=== PATIENT | male | born 1980 | race African-American/Black ===

== ENCOUNTER 2016-06-08 19:08 | Emergency (ER) ==
--- NOTE | 2016-06-08 19:33 | PROVIDER DOCUMENTATION ---
HPI-General Adult - General Source: patient - History of Present Illness -Gen Adult Nature of Presenting Problems: Pt. is 35 yom that presents with c/o right calf pain. Pt. reports he was seen last week at an Urgent care and they told him to come to the ED then to be checked for a clot. He didn't come then and now has decided since the pain will not go away that he wants to be checked. Pt. denies any injury or other symptoms but reports a family history of blood clots. Location of Pain/Injury: reports: lower extremity (Right calf). denies: head, face, mouth, neck, chest, upper extremity, hand(s), abdomen, back, pelvis, genitalia, feet, upper body, lower body, generalized Pain Radiation: reports: no radiation Quality of Pain: reports: aching. denies: burning, cramping, dull, fullness, indigestion, pressure, sharp, stabbing, tearing, throbbing, tightness Severity: reports: mild. denies: moderate, severe Onset/Duration: reports: abrupt, 1 week ago Timing: reports: still present. denies: improving, gone now, resolved prior to arrival, intermittent, constant, changing over time, getting worse Context/Activities at Onset: reports: none. denies: recent emotional stress, recent physical stress, recent trauma history, possible bad food, cold exposure , out of country travel Modifying Factors: improves with: nothing Associated Symptoms: reports: muscle aches. denies: anxiety, arm pain, back/ neck pain, chest pain, constipation, cough, diaphoresis, diarrhea, dizziness, EENT symptoms, fatigue, fever/chills, genitourinary problems, headaches, heartburn, joint pain, loss of appetite, malaise, sinus congestion/drainage, nausea, rash, seizure, shortness of breath, sensory/motor loss, pain with inspiration, swelling/mass in abdomen, syncope, vomiting, weakness, trouble walking Similar Symptoms Previously?: Yes Recently seen or treated by another doctor?: Yes <Penny Yanes - Last Filed: 06/08/16 19:45> <Antonietta Johnson - Last Filed: 06/08/16 20:35> - General Chief Complaint: Extremity Pain Stated Complaint: "GOUT/BLOOD CLOTS" Time Seen by Provider: 06/08/16 19:28 Allergies/Adverse Reactions: Patient Allergies Allergy/AdvReac Type Severity Reaction Status Date / Time No Known Allergies Allergy Verified 06/08/16 19:21 Home Medications: Home Medication List Medication Instructions Recorded Confirmed Last Taken Type Hydrocodone/Acetaminophen [[place] 7.5 mg PO 06/08/16 Unknown History 7.5-325 Tablet] Rivaroxaban [Xarelto] 10 mg PO DAILY #5 tablet 06/08/16 Unknown Rx Review of Systems - Adult - REVIEW OF SYSTEMS - ADULT Constitutional: reports: see HPI. denies: chills, fever, fatique Eyes: reports: see HPI. denies: discharge, blurred vision, double vision Ears, Nose, Mouth & Throat: reports: see HPI. denies: ear pain, hearing loss, sinus problem, nose pain, loose teeth, mouth/dental pain, throat pain, throat swelling Cardiovascular: reports: see HPI. denies: chest pain, heart murmur, orthopnea, syncope Respiratory: reports: see HPI. denies: chronic cough, cough, dyspnea on exertion, pleurisy, shortness of breath, wheezing Gastrointestinal: reports: see HPI. denies: abdominal pain, hematemesis, diarrhea, nausea, vomiting Genitourinary: reports: see HPI. denies: dysuria, discharge, flank pain, hesitency, urgency Musculoskeletal: reports: see HPI, muscle aches. denies: bone pain, back pain, joint pain, joint swelling, neck pain Integumentary: reports: see HPI. denies: hives, itching, mole changes, rash, skin thickening Neurological: reports: see HPI. denies: ataxia, headache/migraines, numbness, paresthesia, seizure, tremors Psychiatric: reports: see HPI. denies: anxiety, depression, emotional problems , insomnia, panic attacks, suicidal thoughts <Penny Yanes - Last Filed: 06/08/16 19:45> Past History - Adult - PAST MEDICAL HISTORY-ADULT Review of Records: reports: Old Records Reviewed, Nursing Assessment Review, Medications Reviewed, Social history reviewed & non-contributory. - IMMUNIZATION STATUS Childhood Immunizations: See Nurse Assessment Flu Vaccine: See Nurse Assessment - FAMILY HISTORY Family History: other (Blood clots) - SOCIAL HISTORY Smoking: non-smoker <Penny Yanes - Last Filed: 06/08/16 19:45> Physical Exam-General - PHYSICAL EXAM-ADULT Initial Vital Signs Reviewed: Yes - CONSTITUTIONAL General Appearance: alert, mild distress, obese. negative: thin, anxious, lethargic, slow to respond, obtunded, combative - EYES Eyes: PERRL/EOMI, pink conjunctivae. negative: conjuctival exudate, scleral icterus, subconjunctival hemorrhage - HEAD, EARS, NOSE, MOUTH & THROAT HENMT: normocephalic/atraumatic, moist mucous membranes. negative: angioedema, frontal tenderness, maxillary tenderness - NECK Neck: non-tender, full range of motion, supple, normal inspection. negative: lymphadenopathy, trachial deviation, thyromegaly - RESPIRATORY Respiratory: lungs clear, normal breath sounds. negative: crackles, rales, rhonchi, stridor, wheezing - CARDIOVASCULAR Cardiovascular: normal peripheral pulses, regular rate, rhythm, no edema, no JVD , no murmur. negative: extra beats, friction rub, irregularly irregular - CHEST (BREASTS) Chest/Breast: deferred - GASTROINTESTINAL (ABDOMEN) Abdominal Exam: normal bowel sounds, non tender, soft. negative: distended, guarding, rigid, rebound, tenderness, hernia, mass - GENITOURINARY Male Genitalia: deferred Rectal Exam: deferred Hemoccult Exam: deferred - LYMPHATIC Lymphatic: no adenopathy. negative: axilla node tender, cervical node tenderness - MUSCULOSKELETAL Back Exam: normal inspection, no CVA tenderness, no vertebral tenderness. negative: ecchymosis, swelling, vertebral tenderness Extremity: normal range of motion, normal gait, normal inspection, tenderness. negative: deformity, erythema, inflammation, swelling Peripheral Pulses: radial (R): 2+, radial (L): 2+ - SKIN Integumentary: normal color, normal turgor, warm/dry. negative: cyanosis, diaphoresis, ecchymosis, erythema, jaundice, mottled, pallor, petechiae, purpura , rash, swelling, tenderness - NEUROLOGIC Neurologic: grossly normal, no motor/sensory deficits. negative: aphasia, facial droop, focal weakness, motor weakness, sensory deficit - PSYCHIATRIC Psych/Mental Status: normal mood/affect, normal thought content, normal thought process, oriented x 3. negative: anxious, paranoid, tearful <Penny Yanes - Last Filed: 06/08/16 19:45> Progress - CHANGE OF SHIFT REPORT (ED Provider) Report Given and Care Transferred to:: Antonietta Johnson PA-C Time of Transfer: 19:45 Items Pending: Labs Tentative Impression of Patient: Pulled muscle? <Penny Yanes - Last Filed: 06/08/16 19:45> - PLAN OF CARE/RESULTS Progress/Plan/Lab Results: Vital Signs Temp Pulse Resp BP Pulse Ox 06/08/16 19:15 98 F 84 18 164/76 98 No Known Allergies Allergy (Verified 06/08/16 19:21) Hydrocodone/Acetaminophen [[place] 7.5-325 Tablet] 7.5 mg PO 06/08/16 Laboratory 06/08/16 19:45 D-Dimer 2.35 H Orders Category Date Time Status D-DIMER PL [COAG] Stat Lab 06/08/16 19:45 Completed Vascular US is not on the premises at this time. Issued out-pt order for right LE doppler US to r/o DVT. Orders Category Date Time Status D-DIMER PL [COAG] Stat Lab 06/08/16 19:45 Completed Rivaroxaban [Xarelto] Med 06/08/16 20:34 Once 10 mg PO NOW ONE discussed with Dr. Zuleta, recommended PO xarelto and follow up tomorrow for doppler. <Antonietta Johnson - Last Filed: 06/08/16 20:35> Departure <Penny Yanes - Last Filed: 06/08/16 19:45> - Departure Time of Disposition Order: 20:29 Certified Medical Emergency: Emergent <Antonietta Johnson - Last Filed: 06/08/16 20:35> - Departure DIAGNOSIS: Elevated d-dimer Disposition: HOME 01 Condition: Good Additional Instructions: Follow up with out patient for ultrasound of right lower leg to rule out possible blood clot. ED Follow Up Instructions: You have been treated by a care provider in the Emergency Department. These instructions are being provided to you so you can have an understanding of how to care for yourself upon discharge. Upon discharge from the Emergency Department, you are responsible for making arrangements for follow-up care by a physician of your choice. Take all prescribed medications as directed. Return to the Emergency Department immediately for any new or worsening symptoms. You may call the Physician Referral phone number at [phone] to obtain a list of Physicians who are taking new patients. Prescriptions: Rivaroxaban [Xarelto] 10 mg PO DAILY #5 tablet Referrals: None,PCP [Primary Care Provider] - Evelio Desai MD [STAFF PHYSICIAN] - Attestation - Physician/ MICHELE Attestation Patient care was provided by Advanced Practice Provider:: Yes Advanced Practice Provider:: Antonietta Johnson Advanced Practice Provider documentation review:: The Mid-level provider documentation, treatment plan and medical decision making was reviewed by the physician who agrees with all treatment and medical decision making by the MLP. <Antonietta Johnson - Last Filed: 06/08/16 20:35> Physician Attestation
[2016-06-08] MEDS ORDERED: XARELTO PO ONE (20:34)
[2016-06-08 20:52] VITALS: BP 122/78
== END 2016-06-08 20:50 | disposition home or self-care (01) ==
LOC: P.ED 19:08
DX: R79.1 Abnormal coagulation profile (principal); M79.604 Pain in right leg; E66.9 Obesity, unspecified; Z79.899 Other long term (current) drug therapy
CPT/HCPCS: 85379